=== PATIENT | female | born 1950 | race Caucasian/White ===

== ENCOUNTER → 2017-04-30 | Outpatient (CLI) | payer MEDICARE, BC ==
--- NOTE | 2017-04-30 12:51 | MM ---
Reason for exam: screening (asymptomatic). Last mammogram was performed 1 year ago. History: Patient is postmenopausal and is nulliparous. Benign excisional biopsy of the right breast. Physical Findings: A clinical breast exam by your physician is recommended on an annual basis and results should be correlated with mammographic findings. MG Screening Mammo w CAD Bilateral CC and MLO view(s) were taken. Prior study comparison: April 27, 2016, bilateral MG screening mammo w CAD. April 26, 2015, bilateral MG screening mammo w CAD. April 20, 2014, bilateral MG screening mammo w CAD. There are scattered fibroglandular densities. Finding: There are few typically benign round calcifications in both breasts. There is no discrete abnormality. ASSESSMENT: Benign, BI-RAD 2 RECOMMENDATION: Routine screening mammogram of both breasts in 1 year.
== END | disposition home or self-care (01) ==
LOC: RADMAMWWP 07:46
PROVIDERS: ATTEND Internal Medicine
DX: Z12.31 Encounter for screening mammogram for malignant neoplasm of breast (principal)

== ENCOUNTER → 2018-05-16 | Outpatient (CLI) | payer MEDICARE, BC ==
--- NOTE | 2018-05-22 09:18 | MM ---
Reason for exam: screening (asymptomatic). Last mammogram was performed 1 year and 1 month ago. History: Patient is postmenopausal and is nulliparous. Benign excisional biopsy of the right breast. Physical Findings: A clinical breast exam by your physician is recommended on an annual basis and results should be correlated with mammographic findings. MG Screening Mammo w CAD Bilateral CC, MLO, and XCCL view(s) were taken. Prior study comparison: April 30, 2017, bilateral MG screening mammo w CAD. April 27, 2016, bilateral MG screening mammo w CAD. There are scattered fibroglandular densities. Benign appearing bilateral calcifications. No suspicious abnormality. No significant changes when compared with prior studies. ASSESSMENT: Benign, BI-RAD 2 RECOMMENDATION: Routine screening mammogram of both breasts in 1 year.
== END | disposition home or self-care (01) ==
LOC: RADMAMWWP 07:46
PROVIDERS: ATTEND Internal Medicine
DX: Z12.31 Encounter for screening mammogram for malignant neoplasm of breast (principal)
CPT/HCPCS: 77067

== ENCOUNTER 2018-12-15 13:36 | Emergency (ER) | payer MEDICARE, BC ==
--- NOTE | 2018-12-15 15:23 | ED ---
General Adult HPI - General Chief complaint: Skin/Abscess/Foreign Body Stated complaint: Rash Time Seen by Provider: 12/15/18 14:15 Source: patient, RN notes reviewed, old records reviewed Mode of arrival: ambulatory Limitations: no limitations - History of Present Illness Initial comments: 68-year-old female patient with past medical history of hypertension and sensitivity to irritants on skin since ED with approximately 36 hours of rash. Patient reports that she recently switched or laundry detergent, upon when her close for the first time she developed a erythematous, rash on the areas where the clothing touch her skin. Patient states that this was mildly pruritic. Patient was seen at [facility] and administered steroids and Benadryl. Patient states that the rash is greatly improved. Patient does report that [facility] recommended she come in for further evaluation. Patient denies any angioedema, facial swelling, shortness of breath, wheezing, feeling of throat closing, nausea vomiting diarrhea, abdominal pain. Patient denies other complaints. Systemic: Pt denies fatigue, myalgia, fever/chills. Pt denies weakness, night sweats, weight loss. Neuro: Pt denies headache, visual disturbances, syncope or pre-syncope. HEENT: Pt denies ocular discharge or irritation, otalgia, rhinorrhea, pharyngitis or notable lymphadenopathy. Cardiopulmonary: Pt denies chest pain, SOB, heart palpitations, dyspnea on exertion. Abdominal/GI: Pt denies abdominal pain, n/v/d. : Pt denies dysuria, burning w/ urination, frequency/urgency. Denies new onset urinary or bowel incontinence. MSK: Pt denies myalgia, loss of strength or function in extremities. Neuro: Pt denies new onset weakness, paresthesias. - Related Data Previous Rx's Medication Instructions Recorded EPINEPHrine [Epipen 2-Cornel] 0.3 mg IM ONCE PRN #1 pack 12/15/18 diphenhydrAMINE [Benadryl] 1 - 2 tab PO Q6HR PRN #30 capsule 12/15/18 Allergies Allergy/AdvReac Type Severity Reaction Status Date / Time Penicillins Allergy Anaphylaxis Verified 12/15/18 15:24 Sulfa (Sulfonamide Allergy Anaphylaxis Verified 12/15/18 15:24 Antibiotics) Review of Systems ROS Statement: Those systems with pertinent positive or pertinent negative responses have been documented in the HPI. ROS Other: All systems not noted in ROS Statement are negative. Past Medical History Past Medical History: No Reported History History of Any Multi-Drug Resistant Organisms: None Reported Past Surgical History: Hysterectomy Additional Past Surgical History / Comment(s): Kidney removal left, Past Psychological History: No Psychological Hx Reported Smoking Status: Never smoker Past Alcohol Use History: None Reported Past Drug Use History: None Reported General Exam - General Exam Comments Initial Comments: Constitutional: NAD, AOX3, Pt has pleasant affect. HEENT: NC/AT, trachea midline, neck supple, no lymphadenopathy. Posterior pharynx non erythematous, without exudates. External ears appear normal, without discharge. Mucous membranes moist. Eyes PERRLA, EOM intact. There is no scleral icterus. No pallor noted. No angioedema. Cardiopulmonary: RRR, no murmurs, rubs or gallops, no JVD noted. Lungs CTAB in anterior and posterior castañeda. No peripheral edema. Abdominal exam: Abdomen soft and non-distended. Abdomen non-tender to palpation in all 4 quadrants. Bowel sounds active in LLQ. No hepatosplenomegaly. No ecchymosis Neuro: CN II-XII grossly intact. No nuchal rigidity. MSK: No posterior calf tenderness bilaterally, homans sign negative bilaterally. Posterior tibialis and radial pulse +2 bilaterally. Sensation intact in upper and lower extremities. Full active ROM in upper and lower extremities, 5/5 stregnth. Derm: Mildly erythematous rash noted on upper extremities bilaterally, mild amount located on back. Rashes mildly erythematous, not raised, nonpruritic, located in patches. Patient reports that is greatly improved. Limitations: no limitations Course Vital Signs 12/15/18 14:14 Temperature 97.6 F Pulse Rate 79 Respiratory 18 Rate Blood Pressure 151/78 O2 Sat by Pulse 99 Oximetry Medical Decision Making - Medical Decision Making 68-year-old female patient with past medical history of hypertension and sensitivity to irritants on skin since ED with approximately 36 hours of rash. Patient reports that she recently switched or laundry detergent, upon when her close for the first time she developed a erythematous, rash on the areas where the clothing touch her skin. Patient states that this was mildly pruritic. Patient was seen at [facility] and administered steroids and Benadryl. Patient states that the rash is greatly improved. [facility] report [facility] she come [facility] for further [facility]. Patient denies any angioedema, facial swelling, shortness of breath, wheezing, feeling of throat closing, nausea vomiting diarrhea, abdominal pain. Patient denies other complaints. Pt VSS, afebrile. Physical exam displayed: Mildly erythematous rash noted on upper extremities bilaterally, mild amount located on back. Rashes mildly erythematous, not raised, nonpruritic, located in patches. Patient reports that is greatly improved. Patient diagnosed with contact dermatitis. Patient to continue to use Benadryl as needed for rash. Patient educated and after and flexes, verbalized understanding. Patient to be prescribed Benadryl and EpiPen to use in case of emergency anaphylaxis. Pt verbalized understanding. Pt to f/u with PCP in 1-2 days. Pt to return to ED if new s/sx develop or if condition worsens in anyway. Case dsicussed with Dr. Ramirez. Disposition Clinical Impression: Contact dermatitis Disposition: HOME SELF-CARE Condition: Stable Instructions (If sedation given, give patient instructions): Contact Dermatitis (ED) Additional Instructions: Patient to adhere to previously discussed treatment plan and will take medication(s) as directed. Patient to follow up with PCP in 1-2 days. Patient to return to ED if symptoms do not improve. Use EpiPen only in case of emergency for anaphylaxis. Use Benadryl as needed for inflammation and rash. Prescriptions: diphenhydrAMINE [Benadryl] 1 - 2 tab PO Q6HR PRN #30 capsule PRN Reason: Allergic Reaction EPINEPHrine [Epipen 2-Cornel] 0.3 mg IM ONCE PRN #1 pack PRN Reason: Anaphylaxis Is patient prescribed a controlled substance at d/c from ED?: No Referrals: Fahad Salgado MD [Primary Care Provider] - 1-2 days Time of Disposition: 15:29
[2018-12-15 15:41] VITALS: BP 147/74; PULSE 82; RESP 19; TEMP 97.9
== END 2018-12-15 15:33 | disposition home or self-care (01) ==
LOC: EC 13:36
DX: L25.9 Unspecified contact dermatitis, unspecified cause (principal); Z88.0 Allergy status to penicillin; Z88.2 Allergy status to sulfonamides
CPT/HCPCS: 99283

== ENCOUNTER → 2018-12-26 | Outpatient (CLI) | payer MEDICARE, BC ==
[2018-12-26 13:55] LABS: Basophils # (A) 0.1 k/uL (0-0.2); Basophils % (A) 1 %; Eosinophils # (A) 0.1 k/uL (0-0.7); Eosinophils % (A) 1 %; HCT 45.5 % (34.0-46.0); HGB 14.5 gm/dL (11.4-16.0); Lymphocytes % (A) 17 %; MCH 29.5 pg (25.0-35.0); MCHC 31.9 g/dL (31.0-37.0); MCV 92.4 fL (80.0-100.0); Mean Platelet Volume 6.7; Monocytes # (A) 0.4 k/uL (0-1.0); Monocytes % (A) 3 %; Neutrophils # (A) 9.1 k/uL (1.3-7.7); Neutrophils % (A) 77 %; Platelet Count 364 k/uL (150-450); RBC 4.93 m/uL (3.80-5.40); RDW 13.3 % (11.5-15.5); WBC 11.7 k/uL (3.8-10.6)
[2018-12-26 13:57] LABS: Appearance,Urine Clear (Clear); Bilirubin,Urine Negative (Negative); Blood,Urine Negative (Negative); Color,Urine Light Yellow; Glucose,Urine (UA) Negative (Negative); Ketones,Urine Negative (Negative); Leukocyte Esterase,Urine Negative (Negative); Nitrite,Urine Negative (Negative); PH, Urine 5.5 (5.0-8.0); Protein,Urine Trace (Negative); Specific Gravity,Urine 1.011 (1.001-1.035); Urobilinogen,Urine <2.0 mg/dL (<2.0)
[2018-12-26 16:50] LABS: Erythrocyte Sedimentation Rate 16 mm/hr (0-20)
[2018-12-26 20:03] LABS: Albumin 4.4 g/dL (3.80-4.90); Albumin/Globulin Ratio 1.83 (1.60-3.17); Anion Gap 6.6 mmol/L (4.00-12.00); Calcium 9.8 mg/dL (8.7-10.3); Carbon Dioxide 26.4 mmol/L (21.6-31.8); Globulin 2.4 g/dL (1.6-3.3); Potassium 4.2 mmol/L (3.5-5.5); Total Bilirubin 0.4 mg/dL (0.3-1.2); Total Protein 6.8 g/dL (6.2-8.2)
[2018-12-26 20:18] LABS: Thyroid Peroxidase Antibodies <28.0 U/mL (0.0-60.0)
[2018-12-27 10:06] LABS: Pistachio IgE Class CLASS 0
== END | disposition home or self-care (01) ==
LOC: LABWHC1 13:27
PROVIDERS: ATTEND Allergy & Immunology
DX: L50.9 Urticaria, unspecified (principal)
CPT/HCPCS: 36415; 80053; 81003; 85025; 85652; 86003; 86160; 86376; 86800; 88184; 88185

== ENCOUNTER → 2019-05-22 | Outpatient (CLI) | payer MEDICARE, BC ==
--- NOTE | 2019-05-26 09:32 | MM ---
Reason for exam: screening (asymptomatic). Last mammogram was performed 1 year ago. History: Patient is postmenopausal and is nulliparous. Benign excisional biopsy of the right breast. Physical Findings: A clinical breast exam by your physician is recommended on an annual basis and results should be correlated with mammographic findings. MG Screening Mammo w CAD Bilateral CC and MLO view(s) were taken. Prior study comparison: May 16, 2018, bilateral MG screening mammo w CAD. April 30, 2017, bilateral MG screening mammo w CAD. There are scattered fibroglandular densities. No significant changes when compared with prior studies. ASSESSMENT: Benign, BI-RAD 2 RECOMMENDATION: Routine screening mammogram of both breasts in 1 year.
== END | disposition home or self-care (01) ==
LOC: RADMAMWWP 07:25
PROVIDERS: ATTEND Internal Medicine
DX: Z12.31 Encounter for screening mammogram for malignant neoplasm of breast (principal)
CPT/HCPCS: 77067

== ENCOUNTER → 2021-04-26 | Outpatient (CLI) | payer MEDICARE ==
--- NOTE | 2021-04-27 14:28 | BD ---
EXAMINATION TYPE: Axial Bone Density DATE OF EXAM: 04/26/2021 COMPARISON: 09.14.2014 CLINICAL HISTORY: 70 YR OLD FEMALE.....ICD-10 CODE: N95.1 POST MENOPAUSAL Height: 63 Weight: 175 FRAX RISK QUESTIONS: History of Fracture in Adulthood: YES RISK FACTORS HISTORY OF: RT FOOT FX >50 YRS OLD Postmenopausal woman: YES, AT AGE 51 YRS OLD Hyperparathyroidism: NO Adrenal Insufficiency: NO MEDICATIONS: Additional Medications: BP MEDS, XANAX PRN, STATIN FOR CHOLESTEROL, VIT D, Additional History: HYPERTENSION, ONE KIDNEY ONLY, CHOLESTEROL, EXAM MEASUREMENTS: Bone mineral densitometry was performed using the [employer] System. Bone mineral density as measured about the Lumbar spine is: ----- L1-L4(G/cm2): 1.292 T Score Values are as follows: ----- L1: 0.2 ----- L2: 0.7 ----- L3: 2.0 ----- L4: 0.6 ----- L1-L4: 0.9 Bone mineral density has: Increased 4.6% since study of: 09.14.2014 Bone mineral density about the R hip (g/cm2): 0.978 Bone mineral density about the L hip (g/cm2): 0.935 T Score values are as follows: -----R Neck: -0.4 -----L Neck: -0.5 -----R Total: -0.2 -----L Total: -0.6 Bone mineral density has: Decreased -4.2% since study of: 09.14.2014 FRAX: THERE IS A 12.1% CHANCE FOR A MAJOR OSTEOPOROTIC FX AND A 0.8% FOR HIP......PROBABILITY FOR FX IN 10 YRS TIME IMPRESSION: Findings are within normal limits. Bone mineral density has decreased 4.2 % at the hips in comparison to 09/14/2014 study. There is a 12.1% chance of major osteoporotic fracture and 0.8% probability of hip fracture in the next 10 years.
--- NOTE | 2021-04-28 11:36 | MM ---
Reason for exam: screening (asymptomatic). Last mammogram was performed 1 year and 11 months ago. History: Patient is postmenopausal and is nulliparous. Benign excisional biopsy of the right breast. Physical Findings: A clinical breast exam by your physician is recommended on an annual basis and results should be correlated with mammographic findings. MG 3D Screening Mammo W/Cad Bilateral CC and MLO view(s) were taken. Prior study comparison: May 22, 2019, bilateral MG screening mammo w CAD. May 16, 2018, bilateral MG screening mammo w CAD. There are scattered fibroglandular densities. There is no discrete abnormality. No significant changes when compared with prior studies. ASSESSMENT: Negative, BI-RAD 1 RECOMMENDATION: Routine screening mammogram of both breasts in 1 year.
== END | disposition home or self-care (01) ==
LOC: RADMAMWWP 07:08
PROVIDERS: ATTEND Internal Medicine
DX: Z12.31 Encounter for screening mammogram for malignant neoplasm of breast (principal); Z78.0 Asymptomatic menopausal state
CPT/HCPCS: 77063; 77067; 77080

== ENCOUNTER 2021-06-15 08:30 | Day surgery (SDC) | payer MEDICARE ==
[2021-06-14 11:19] VITALS: BMI 29.8
[~2021-06-15 08:30] MED LIST: LACTATED RINGERS 1,000 ML IV SCH
[2021-06-15 09:10] VITALS: TEMP 99
[2021-06-15] MEDS ORDERED: LIDOCAINE 1% INJ 10MG/ML (20 ML MDV) ONE (09:58)
[2021-06-15] MEDS ORDERED: PROPOFOL 10 MG/ML 20 ML VIAL IV ONE (09:58)
--- NOTE | 2021-06-15 10:12 | P.PCN ---
Date of Procedure: 06/15/21 Procedure(s) Performed: BRIEF HISTORY: Patient is a 70-year-old pleasant white female scheduled for an elective colonoscopy as a part of evaluation of prior history of colon polyps Her last coloscopy was 5 years ago PROCEDURE PERFORMED: Colonoscopy. PREOPERATIVE DIAGNOSIS: History of colon polyps. IV sedation per Anesthesia. PROCEDURE: After informed consent was obtained, the patient, was brought into the endoscopy unit. IV sedation was administered by Anesthesia under continuous monitoring. Digital rectal examination was normal. Initially the Olympus CF-160 flexible video colonoscope was then inserted in the rectum, gradually advanced into the cecum without any difficulty. Careful examination was performed as the scope was gradually being withdrawn. Ileocecal valve and the appendiceal orifice were visualized and appeared normal. Prep was excellent. Mucosa of the cecum, ascending colon, transverse colon, descending colon, sigmoid colon, and rectum appeared normal. Retroflexion was performed in the rectum and no lesions were seen. The patient tolerated the procedure well. IMPRESSION: Normal-appearing colon from rectum to cecum with no evidence of colorectal neoplasia. RECOMMENDATIONS: Findings of this examination were discussed with the patient is well as her family. She was advised to have a repeat colonoscopy in 10 years from now because of the prior history of colon polyps
[2021-06-15 10:19] VITALS: RESP 16
[2021-06-15 10:39] VITALS: BP 117/74; PULSE 67
== END 2021-06-15 11:18 | disposition home or self-care (01) ==
LOC: ORWHC2ENDO 08:30
PROVIDERS: ATTEND Internal Medicine Gastroenterology
DX: Z12.11 Encounter for screening for malignant neoplasm of colon (principal); Z86.010 Personal history of colon polyps; Z88.0 Allergy status to penicillin; I10 Essential (primary) hypertension; E78.5 Hyperlipidemia, unspecified; K21.9 Gastro-esophageal reflux disease without esophagitis; Z88.2 Allergy status to sulfonamides; Z79.899 Other long term (current) drug therapy
CPT/HCPCS: J2001; J2704; G0105

== ENCOUNTER → 2022-05-03 | Outpatient (CLI) | payer MEDICARE ==
--- NOTE | 2022-05-04 07:48 | MM ---
Reason for Exam: Screening (asymptomatic). Last screening mammogram was performed 12 month(s) ago. Patient History: Menarche at age 14. Patient has no children. Left ovary removed at age 52. Right ovary removed at age 52. Hysterectomy at age 52. Postmenopausal. Benign Excisional Biopsy on the right side. Risk Values: Nicole 5 year model risk: 2.3%. NCI Lifetime model risk: 6.6%. Prior Study Comparison: 05/16/2018 Bilateral Screening Mammogram, [facility]. 05/22/2019 Bilateral Screening Mammogram, [facility]. 04/26/2021 Bilateral Screening Mammogram, [facility]. Tissue Density: The breast tissue is heterogeneously dense. This may lower the sensitivity of mammography. Findings: Analyzed By CAD. There is no suspicious group of microcalcifications or new suspicious mass in either breast. Overall Assessment: Negative, BI-RAD 1 Management: Screening Mammogram of both breasts in 1 year. A clinical breast exam by your physician is recommended on an annual basis and results should be correlated with mammographic findings. Electronically signed and approved by: Julian Thurston M.D. Radiologis
== END | disposition home or self-care (01) ==
LOC: RADMAMWWP 07:12
PROVIDERS: ATTEND Internal Medicine
DX: Z12.31 Encounter for screening mammogram for malignant neoplasm of breast (principal); Z78.0 Asymptomatic menopausal state
CPT/HCPCS: 77063; 77067

== ENCOUNTER 2023-04-14 16:55 | Observation (INO) | payer MEDICARE ==
[2023-04-14 17:55] LABS: Basophils # (A) 0.1 k/uL (0-0.2); Basophils % (A) 1 %; Eosinophils # (A) 0.3 k/uL (0-0.7); Eosinophils % (A) 3 %; HCT 42.2 % (34.0-46.0); HGB 13.9 gm/dL (11.4-16.0); Lymphocytes # (A) 2.8 k/uL (1.0-4.8); Lymphocytes % (A) 34 %; MCH 30.9 pg (25.0-35.0); MCV 93.6 fL (80.0-100.0); Mean Platelet Volume 7.8; Monocytes # (A) 0.4 k/uL (0-1.0); Monocytes % (A) 5 %; Neutrophils # (A) 4.7 k/uL (1.3-7.7); Neutrophils % (A) 56 %; Platelet Count 306 k/uL (150-450); RBC 4.51 m/uL (3.80-5.40); RDW 12.8 % (11.5-15.5); WBC 8.4 k/uL (3.8-10.6)
--- NOTE | 2023-04-14 17:57 | ED ---
Chest Pain HPI - General Chief Complaint: Chest Pain Stated Complaint: Chest Pressure Time Seen by Provider: 04/14/23 17:38 Source: patient Mode of arrival: ambulatory Limitations: no limitations - History of Present Illness Initial Comments: 72-year-old female with past medical history significant for hypertension presents to the ED with a chief complaint of chest pain. Patient states that she was on her way to dinner at rest when she started to experience chest pain located in the middle of her chest. Patient states pain radiated to the area between her shoulder blades. She does note a history of indigestion and notes pain is similar in nature however states that in past episodes of indigestion pain radiated up her throat instead of the back and notes that this worried her and prompted her to the ED further evaluation. Patient states pain lasted for approximately 20 minutes and at this time is completely resolved. During the episode of pain and denies any nausea or vomiting. Denies any shortness of breath. Currently has no complaints. - Related Data Home Medications Medication Instructions Recorded Confirmed Cranberry(Dose Unknown) 1 tab PO DAILY 06/14/21 06/15/21 Elderberry(Dose Unknown) 1 tab PO BID 06/14/21 06/15/21 Fish Oil Cap(Dose Unknown) 1 cap PO TID 06/14/21 06/15/21 Rosuvastatin Calcium [Crestor] 5 mg PO DAILY 06/14/21 06/15/21 Vit C/E/Zn/Coppr/Lutein/Zeaxan 1 each PO BID 06/14/21 06/15/21 [Preservision Areds 2 Softgel] Vitamin D(Dose Unknown) 1 tab PO DAILY 06/14/21 06/15/21 lisinopriL [Prinivil] 10 mg PO QAM 06/14/21 06/15/21 Previous Rx's Medication Instructions Recorded EPINEPHrine [Epipen 2-Cornel] 0.3 mg IM ONCE PRN #1 pack 12/15/18 Allergies Allergy/AdvReac Type Severity Reaction Status Date / Time Penicillins Allergy Anaphylaxis Verified 06/15/21 09:00 Sulfa (Sulfonamide Allergy Anaphylaxis Verified 06/15/21 09:00 Antibiotics) Review of Systems ROS Statement: Those systems with pertinent positive or pertinent negative responses have been documented in the HPI. ROS Other: All systems not noted in ROS Statement are negative. Past Medical History Past Medical History: GERD/Reflux, Hyperlipidemia, Hypertension History of Any Multi-Drug Resistant Organisms: None Reported Past Surgical History: Breast Surgery, Hysterectomy Additional Past Surgical History / Comment(s): left Kidney removal age 11 (never formed), rt breast lumpectomy, rt shoulder arthroscopy, colonocopy Past Anesthesia/Blood Transfusion Reactions: No Reported Reaction Past Psychological History: No Psychological Hx Reported Smoking Status: Never smoker Past Alcohol Use History: None Reported Past Drug Use History: None Reported - Past Family History Father Family Medical History: Cancer Additional Family Medical History / Comment(s): lung cancer Sister(s) Family Medical History: Deep Vein Thrombosis (DVT), Pulmonary Embolus General Exam Limitations: no limitations Head exam: Present: atraumatic, normocephalic Eye exam: Present: normal appearance ENT exam: Present: normal exam, mucous membranes moist Respiratory exam: Present: normal lung sounds bilaterally Cardiovascular Exam: Present: regular rate, normal rhythm GI/Abdominal exam: Present: soft, tenderness (Nontender to palpation. No rebound guarding or rigidity.) Neurological exam: Present: alert, oriented X3 Psychiatric exam: Present: normal affect, normal mood Skin exam: Present: warm, dry Course Vital Signs 04/14/23 17:04 Temperature 97.6 F Pulse Rate 68 Respiratory 20 Rate Blood Pressure 151/78 O2 Sat by Pulse 100 Oximetry Chest Pain MDM - MDM Was pt. sent in by a medical professional or institution (JENNIFER Moncada, [employer] APPRENTICE, urgent care, hospital, or [facility]...) When possible be specific @ -[No] Did you speak to anyone other than the patient for history (EMS, parent, family, police, friend...)? What history was obtained from this source @ -[No] Did you review nursing and triage notes (agree or disagree)? Why? @ -[I reviewed and agree with nursing and triage notes] Were old charts reviewed (outside hosp., previous admission, EMS record, old EKG, old radiological studies, urgent care reports/EKG's, [facility] records)? Report findings @ -Charts reviewed showing history of hypertension. Differential Diagnosis (chest pain, altered mental status, abdominal pain women, abdominal pain men, vaginal bleeding, weakness, fever, dyspnea, syncope, headache, dizziness, GI bleed, back pain, seizure, CVA, palpatations, mental health, musculoskeletal)? @ -Differential Chest Pain: Stable Angina, Unstable Angina, STEMI, NSTEMI Aortic Dissection, Pneumothorax, Musculoskeletal, Esophageal Spasm GERD, Cholecystitis, Pancreatitis, Zoster, this is not meant to be an all-inclusive list. EKG interpreted by me (3pts min.). @ -EKG shows a sinus rhythm at [address] or T-wave changes. OR 173, QRS 88, QT/QTC 376/401. X-rays interpreted by me (1pt min.). @ -Chest x-ray shows no acute process. CT interpreted by me (1pt min.). @ -[None done] U/S interpreted by me (1pt. min.). @ -[None done] What testing was considered but not performed or refused? (CT, X-rays, U/S, labs)? Why? @ -[None] What meds were considered but not given or refused? Why? @ -[None] Did you discuss the management of the patient with other professionals (professionals i.e. , PA, [employer]DER APPRENTICE, lab, RT, psych nurse, social director, corn miller, teacher, correctional program officer, casey saw operator)? Give summary @ -[No] Was smoking cessation discussed for >3mins.? @ -[No] Was critical care preformed (if so, how long)? @ -[No] Were there social determinants of health that impacted care today? How? (Homelessness, low income, unemployed, alcoholism, drug addiction, transportation, low edu. Level, literacy, decrease access to med. care, snf, rehab)? @ -[No] Was there de-escalation of care discussed even if they declined (Discuss DNR or withdrawal of care, Hospice)? DNR status @ -[No] What co-morbidities impacted this encounter? (DM, HTN, Smoking, COPD, CAD, Cancer, CVA, ARF, Chemo, Hep., AIDS, mental health diagnosis, sleep apnea, morbid obesity)? @ -[None] Was patient admitted / discharged? Hospital course, mention meds given and route, prescriptions, significant lab abnormalities, going to OR and other pertinent info. @ -Discharged. Her laboratory studies unremarkable including troponin. Chest x-ray shows no acute process. Patient has a heart score of 4 due to age, history, and history of hypertension. At this time symptoms likely secondary to GERD. However, will be admitted to observation for chest pain rule out with consultation to cardiology. Spoke to patient patient agreeable with plan. Undiagnosed new problem with uncertain prognosis? @ -[No] Drug Therapy requiring intensive monitoring for toxicity (Heparin, Nitro, Insulin, Cardizem)? @ -[No] Were any procedures done? @ -[No] Diagnosis/symptom? @ -Chest pain Acute, or Chronic, or Acute on Chronic? @ -Acute Uncomplicated (without systemic symptoms) or Complicated (systemic symptoms)? @ -Uncomplicated Side effects of treatment? @ -[No] Exacerbation, Progression, or Severe Exacerbation? @ -[No] Poses a threat to life or bodily function? How? (Chest pain, USA, PA, pneumonia, PE, COPD, DKA, ARF, appy, cholecystitis, CVA, Diverticulitis, Homicidal, Suicid al, threat to staff... and all critical care pts) @ -[No] Disposition Clinical Impression: Chest pain Disposition: ADMITTED IP TO THIS HOSP Condition: Good Referrals: Fahad Salgado MD [Primary Care Provider] - 1-2 days Time of Disposition: 18:30
[2023-04-14 18:05] LABS: Partial Thromboplastin Time 25.1 sec (22.0-30.0); Prothrombin Time 10.2 sec (9.0-12.0)
[2023-04-14 18:10] LABS: ALT 29 U/L (4-34); AST 30 U/L (14-36); African American GFR (CKD) 73 (>60 ml/min/1.73 sqM); Albumin 3.9 g/dL (3.5-5.0); Alkaline Phosphatase 119 U/L (38-126); Anion Gap 8 mmol/L; Blood Urea Nitrogen 25 mg/dL (7-17); Calcium 9.3 mg/dL (8.4-10.2); Carbon Dioxide 22 mmol/L (22-30); Chloride 108 mmol/L (98-107); Glucose 103 mg/dL (74-99); Magnesium 2.1 mg/dL (1.6-2.3); Non-African American GFR(CKD) 63 (>60 ml/min/1.73 sqM); Potassium 4.3 mmol/L (3.5-5.1); Sodium 138 mmol/L (137-145); Total Bilirubin 0.3 mg/dL (0.2-1.3); Total Protein 6.7 g/dL (6.3-8.2)
--- NOTE | 2023-04-14 18:10 | XR ---
EXAMINATION TYPE: XR chest 2V DATE OF EXAM: 04/14/2023 COMPARISON: 09/11/2012 INDICATION: TECHNIQUE: Frontal and lateral views of the chest are obtained. FINDINGS: The heart size is normal. The pulmonary vasculature is normal. The lungs are clear. Mild Spondylosis lower thoracic spine. IMPRESSION: 1. No acute pulmonary process.
[2023-04-14 18:13] LABS: Appearance,Urine Clear (Clear); Bilirubin,Urine Negative (Negative); Blood,Urine Negative (Negative); Color,Urine Light Yellow; Glucose,Urine (UA) Negative (Negative); Ketones,Urine Negative (Negative); Leukocyte Esterase,Urine Moderate (Negative); Mucus,Urine Rare /hpf; Nitrite,Urine Negative (Negative); PH, Urine 5.5 (5.0-8.0); Protein,Urine Trace (Negative); Specific Gravity,Urine 1.014 (1.001-1.035); Squamous Epithelial Cell,Urine <1 /hpf (0-4); Urobilinogen,Urine <2.0 mg/dL (<2.0); WBC,Urine 18 /hpf (0-5)
[2023-04-14] MEDS ORDERED: NALOXONE 0.4 MG/ML 1 ML VIAL IV PRN (20:07)
[2023-04-15 08:29] VITALS: BP 136/80; PULSE 69; RESP 16; TEMP 97.9
[2023-04-15] MEDS ORDERED: lisinopriL 10 MG TAB PO SCH (09:30)
--- NOTE | 2023-04-15 10:15 | P.HPIM ---
History of Present Illness H&P Date: 04/15/23 Chief Complaint: Chest pain This is a 72-year-old female patient who presented to the ER with concerns of chest pain. Patient reports she was on her way to dinner when pain started suddenly and radiated to her back quickly resolved upon arrival to ER. Patient has had previous episodes of GERD but denies association with radiation. Patient denies any associated shortness of breath or diaphoresis. Patient has a past medical history of GERD, hyperlipidemia, hypertension and nephrectomy. Patient completed showing no acute process. EKG performed showing normal sinus rhythm. Troponins negative 3. The patient with cardiology services no further workup inpatient at this time. UA is positive. Patient denies any acute symptoms urine culture will be ordered at this time patient denies chest pain or shortness of breath. Patient denies nausea vomiting or diarrhea. Patient denies any urinary burning or frequency Review of Systems Please refer to HPI otherwise unremarkable Past Medical History Past Medical History: GERD/Reflux, Hyperlipidemia, Hypertension History of Any Multi-Drug Resistant Organisms: None Reported Past Surgical History: Breast Surgery, Hysterectomy Additional Past Surgical History / Comment(s): left Kidney removal age 11 (never formed), rt breast lumpectomy, rt shoulder arthroscopy, colonoscopy, stem cell in right shoulder Past Anesthesia/Blood Transfusion Reactions: No Reported Reaction Past Psychological History: No Psychological Hx Reported Smoking Status: Never smoker Past Alcohol Use History: None Reported Past Drug Use History: None Reported - Past Family History Father Family Medical History: Cancer Additional Family Medical History / Comment(s): lung cancer Sister(s) Family Medical History: Deep Vein Thrombosis (DVT), Pulmonary Embolus Medications and Allergies Home Medications Medication Instructions Recorded Confirmed Type EPINEPHrine [Epipen 2-Cornel] 0.3 mg IM ONCE PRN #1 pack 12/15/18 04/14/23 Rx Cranberry(Dose Unknown) 1 tab PO DAILY 06/14/21 04/14/23 History Elderberry(Dose Unknown) 1 tab PO BID 06/14/21 04/14/23 History Fish Oil Cap(Dose Unknown) 1 cap PO TID 06/14/21 04/14/23 History Vit C/E/Zn/Coppr/Lutein/Zeaxan 1 cap PO BID 06/14/21 04/14/23 History [Preservision Areds 2 Softgel] Vitamin D(Dose Unknown) 1 tab PO DAILY 06/14/21 04/14/23 History lisinopriL [Prinivil] 10 mg PO DAILY 06/14/21 04/14/23 History Rosuvastatin [Crestor] 5 mg PO DAILY 04/14/23 04/14/23 History Allergies Allergy/AdvReac Type Severity Reaction Status Date / Time Penicillins Allergy Anaphylaxis Verified 04/14/23 19:12 Sulfa (Sulfonamide Allergy Anaphylaxis Verified 04/14/23 19:12 Antibiotics) Physical Exam Vitals: Vital Signs Temp Pulse Pulse Pulse Resp BP BP 04/15/23 07:15 97.9 F 69 16 136/80 04/15/23 02:00 98.2 F 77 15 139/68 04/14/23 22:01 98.2 F 74 15 148/69 04/14/23 21:30 15 04/14/23 20:02 72 17 126/80 04/14/23 19:05 75 04/14/23 18:54 97.9 F 82 20 150/76 04/14/23 17:04 97.6 F 68 20 151/78 Pulse Ox 04/15/23 07:15 96 04/15/23 02:00 97 04/14/23 22:01 96 04/14/23 21:30 04/14/23 20:02 96 04/14/23 19:05 04/14/23 18:54 04/14/23 17:04 100 Intake and Output 04/14/23 04/15/23 04/15/23 22:59 06:59 14:59 Intake Total 0 Balance 0 Intake: Oral 0 Other: Voiding Method Toilet # Voids 2 2 Weight 77.111 kg Head normocephalic Neck supple Lungs clear to auscultation bilaterally no wheezing or crackles Heart regular rate and rhythm S1-S2, no rub or gallop Abdomen is soft nontender nondistended positive bowel sounds no hepatosplenomegaly Extremities no edema Neuro alert and orientated to 3 Results CBC & Chem 7: 04/14/23 17:48 04/14/23 17:48 Labs: Abnormal Lab Results - Last 24 Hours (Table) 04/14/23 04/14/23 Range/Units 17:48 17:48 Chloride 108 H (98-107) mmol/L BUN 25 H (7-17) mg/dL Glucose 103 H (74-99) mg/dL Urine Protein Trace H (Negative) Ur Leukocyte Esterase Moderate H (Negative) Urine WBC 18 H (0-5) /hpf Urine Mucus Rare H (None) /hpf Thrombosis Risk Factor Assmnt - Choose All That Apply Each Factor Represents 1 point: Obesity (BMI >25) Each Risk Factor Represents 2 Points: Age 61-74 years Thrombosis Risk Factor Assessment Total Risk Factor Score: 3 Thrombosis Risk Factor Assessment Level: Moderate Risk Assessment and Plan Assessment: 1. Chest pain. Troponins negative 3 2. Urinary tract infection. Patient denies any symptoms urine culture ordered 3. History of nephrectomy at age 11 4. History of GERD 5. History of hyperlipidemia 6. History of hypertension Time with Patient: Greater than 30 (Greater than 60% of the total time spent in counseling and coordination of care)
--- NOTE | 2023-04-15 10:35 | P.DS ---
Providers Date of admission: 04/14/23 20:07 Expected date of discharge: 04/15/23 Attending physician: Fahad Salgado Consults: 04/14/23 20:07 Consult Physician Urgent Consulting Provider: [facility] Consult Reason/Comments: chest pain r/o ACS Do you want consulting provider notified?: Yes Primary care physician: Fahad Salgado [facility] Hospital Course: Discharge diagnosis 1. Chest pain. Troponins negative 3 2. Urinary tract infection. Patient denies any symptoms urine culture ordered 3. History of nephrectomy at age 11 4. History of GERD 5. History of hyperlipidemia 6. History of hypertension Hospital course This is a 72-year-old female patient who presented to the ER with concerns of chest pain. Patient reports she was on her way to dinner when pain started suddenly and radiated to her back quickly resolved upon arrival to ER. Patient has had previous episodes of GERD but denies association with radiation. Patient denies any associated shortness of breath or diaphoresis. Patient has a past medical history of GERD, hyperlipidemia, hypertension and nephrectomy. Patient completed showing no acute process. EKG performed showing normal sinus rhythm. Troponins negative 3. The patient with cardiology services no further workup inpatient at this time. UA is positive. Patient denies any acute symptoms urine culture will be ordered at this time patient denies chest pain or shortness of breath. Patient denies nausea vomiting or diarrhea. Patient denies any urinary burning or frequency On patient is alert and oriented 3. Patient has been cleared for discharge from cardiology standpoint discussed case with cardiology team patient will follow up outpatient for further management of blood pressure. Also DC patient on Pepcid. Urine culture ordered prior to discharge antibiotic will be sent from office for urinary tract infection. Patient Condition at Discharge: Stable Plan - Discharge Summary New Discharge Prescriptions: New Famotidine [Pepcid] 20 mg PO DAILY 30 Days #30 tablet Continue EPINEPHrine [Epipen 2-Cornel] 0.3 mg IM ONCE PRN #1 pack PRN Reason: Anaphylaxis Vit C/E/Zn/Coppr/Lutein/Zeaxan [Preservision Areds 2 Softgel] 1 cap PO BID lisinopriL [Prinivil] 10 mg PO DAILY Elderberry(Dose Unknown) 1 tab PO BID Rosuvastatin [Crestor] 5 mg PO DAILY Vitamin D(Dose Unknown) 1 tab PO DAILY Fish Oil Cap(Dose Unknown) 1 cap PO TID Cranberry(Dose Unknown) 1 tab PO DAILY Discharge Medication List EPINEPHrine [Epipen 2-Cornel] 0.3 mg IM ONCE PRN #1 pack 12/15/18 [Rx] Cranberry(Dose Unknown) 1 tab PO DAILY 06/14/21 [History] Elderberry(Dose Unknown) 1 tab PO BID 06/14/21 [History] Fish Oil Cap(Dose Unknown) 1 cap PO TID 06/14/21 [History] Vit C/E/Zn/Coppr/Lutein/Zeaxan [Preservision Areds 2 Softgel] 1 cap PO BID 06/14 [History] Vitamin D(Dose Unknown) 1 tab PO DAILY 06/14/21 [History] lisinopriL [Prinivil] 10 mg PO DAILY 06/14/21 [History] Rosuvastatin [Crestor] 5 mg PO DAILY 04/14/23 [History] Famotidine [Pepcid] 20 mg PO DAILY 30 Days #30 tablet 04/15/23 [Rx] Follow up Appointment(s)/Referral(s): Fahad Salgado MD [Primary Care Provider] - 1-2 days Frederic Bocanegra MD [STAFF PHYSICIAN] - 1 Week Activity/Diet/Wound Care/Special Instructions: Antibiotic for UTI will be called in from office Discharge Disposition: HOME SELF-CARE
--- NOTE | 2023-04-15 11:18 | P.CRDCN ---
History of Present Illness Consult date: 04/15/23 Consult reason: chest pain History of present illness: The patient is a 72-year-old female who presented to the emergency room with new onset of chest discomfort. She states this was epigastric pain, which she describes as a burning sensation that radiated through to her mid scapula. She states she was not exerting herself at the time and had not performed any strenuous activity earlier that day. She states she typically exercises 5 days per week without issue, but has been having reflux discomfort over the last several months. DIAGNOSTICS: EKG shows sinus mechanism without ST or T-wave abnormalities Chest x-ray showed no acute cardiopulmonary process Lab data: WBC 8.4, hemoglobin 13.9, hematocrit 42.2, platelet 306, sodium 138, potassium 4.3, BUN 25, creatinine 0.93, AST 30, ALT 29, troponins negative 3 REVIEW OF SYSTEMS: No fever or chills. No cough or expectoration. No diaphoresis. Patient denies headache, dizziness, blurred vision, double vision. Patient denies any stomach discomfort. No nausea, vomiting. No hematochezia. No hematemesis. Denies any black stools or blood in his stools. Denies dysuria or hematuria. No muscle weakness or numbness. No chest pain or chest pressure. No dyspnea. PHYSICAL EXAMINATION: This is a 72-year-old female in no apparent distress at the time of my examination. HEENT: Head is atraumatic, normocephalic. Pupils are equal, round. Sclerae anicteric. Conjunctivae are clear. Mucous membranes of the mouth are moist. Neck is supple. There is no jugular venous distention. No carotid bruit is heard. CHEST EXAMINATION: Lungs are clear to auscultation. No chest wall tenderness is noted on palpation or with deep breathing. HEART EXAMINATION: Heart regular rate and rhythm. S1, S2 heard. No murmurs, gallops or rub. ABDOMEN: Soft, nontender. Bowel sounds are heard. No organomegaly noted. EXTREMITIES: 2+ peripheral pulses with no evidence of peripheral edema and no calf tenderness noted. NEUROLOGIC EXAMINATION: Patient is awake, alert and oriented x3. FINAL ASSESSMENT AND PLAN: Chest discomfort, not indicative acute coronary syndrome Hypertension, recommend home blood pressure monitoring History of acid reflux PLAN: Check lipid profile TSH and hemoglobin A1c Patient may be discharged from the cardiac standpoint Follow-up in office in 2-3 weeks I am dictating on behalf of Dr Frederic Bocanegra's history/physical and assessment/plan. Past Medical History Past Medical History: GERD/Reflux, Hyperlipidemia, Hypertension History of Any Multi-Drug Resistant Organisms: None Reported Past Surgical History: Breast Surgery, Hysterectomy Additional Past Surgical History / Comment(s): left Kidney removal age 11 (never formed), rt breast lumpectomy, rt shoulder arthroscopy, colonoscopy, stem cell in right shoulder Past Anesthesia/Blood Transfusion Reactions: No Reported Reaction Past Psychological History: No Psychological Hx Reported Smoking Status: Never smoker Past Alcohol Use History: None Reported Past Drug Use History: None Reported - Past Family History Father Family Medical History: Cancer Additional Family Medical History / Comment(s): lung cancer Sister(s) Family Medical History: Deep Vein Thrombosis (DVT), Pulmonary Embolus Medications and Allergies Home Medications Medication Instructions Recorded Confirmed Type EPINEPHrine [Epipen 2-Cornel] 0.3 mg IM ONCE PRN #1 pack 12/15/18 04/14/23 Rx Cranberry(Dose Unknown) 1 tab PO DAILY 06/14/21 04/14/23 History Elderberry(Dose Unknown) 1 tab PO BID 06/14/21 04/14/23 History Fish Oil Cap(Dose Unknown) 1 cap PO TID 06/14/21 04/14/23 History Vit C/E/Zn/Coppr/Lutein/Zeaxan 1 cap PO BID 06/14/21 04/14/23 History [Preservision Areds 2 Softgel] Vitamin D(Dose Unknown) 1 tab PO DAILY 06/14/21 04/14/23 History lisinopriL [Prinivil] 10 mg PO DAILY 06/14/21 04/14/23 History Rosuvastatin [Crestor] 5 mg PO DAILY 04/14/23 04/14/23 History Famotidine [Pepcid] 20 mg PO DAILY 30 Days #30 tablet 04/15/23 Rx Allergies Allergy/AdvReac Type Severity Reaction Status Date / Time Penicillins Allergy Anaphylaxis Verified 04/14/23 19:12 Sulfa (Sulfonamide Allergy Anaphylaxis Verified 04/14/23 19:12 Antibiotics) Physical Exam Vitals: Vital Signs Temp Pulse Pulse Pulse Resp BP BP 04/15/23 07:15 97.9 F 69 16 136/80 04/15/23 02:00 98.2 F 77 15 139/68 04/14/23 22:01 98.2 F 74 15 148/69 04/14/23 21:30 15 04/14/23 20:02 72 17 126/80 04/14/23 19:05 75 04/14/23 18:54 97.9 F 82 20 150/76 04/14/23 17:04 97.6 F 68 20 151/78 Pulse Ox 04/15/23 07:15 96 04/15/23 02:00 97 04/14/23 22:01 96 04/14/23 21:30 04/14/23 20:02 96 04/14/23 19:05 04/14/23 18:54 04/14/23 17:04 100 Intake and Output 04/14/23 04/15/23 04/15/23 22:59 06:59 14:59 Intake Total 0 Balance 0 Intake: Oral 0 Other: Voiding Method Toilet # Voids 2 2 Weight 77.111 kg Results 04/14/23 17:48 04/14/23 17:48 Cardiac Enzymes 04/14/23 04/14/23 04/14/23 Range/Units 17:48 17:48 23:24 AST 30 (14-36) U/L Troponin I <0.012 <0.012 (0.000-0.034) ng/mL 04/15/23 Range/Units 02:53 AST (14-36) U/L Troponin I <0.012 (0.000-0.034) ng/mL Coagulation 04/14/23 Range/Units 17:48 PT 10.2 (9.0-12.0) sec APTT 25.1 (22.0-30.0) sec CBC 04/14/23 Range/Units 17:48 WBC 8.4 (3.8-10.6) k/uL RBC 4.51 (3.80-5.40) m/uL Hgb 13.9 (11.4-16.0) gm/dL Hct 42.2 (34.0-46.0) % Plt Count 306 (150-450) k/uL Comprehensive Metabolic Panel 04/14/23 Range/Units 17:48 Sodium 138 (137-145) mmol/L Potassium 4.3 (3.5-5.1) mmol/L Chloride 108 H (98-107) mmol/L Carbon Dioxide 22 (22-30) mmol/L BUN 25 H (7-17) mg/dL Creatinine 0.92 (0.52-1.04) mg/dL Glucose 103 H (74-99) mg/dL Calcium 9.3 (8.4-10.2) mg/dL AST 30 (14-36) U/L ALT 29 (4-34) U/L Alkaline Phosphatase 119 (38-126) U/L Total Protein 6.7 (6.3-8.2) g/dL Albumin 3.9 (3.5-5.0) g/dL Current Medications Generic Name Dose Route Start Last Admin Trade Name Freq PRN Reason Stop Dose Admin Atorvastatin Calcium 10 mg 04/16/23 09:00 Atorvastatin 10 Mg Tab PO DAILY DIONICIO Lisinopril 10 mg 04/15/23 09:30 04/15/23 10:20 Lisinopril 10 Mg Tab PO 10 mg DAILY DIONICIO Administration Naloxone HCl 0.2 mg 04/14/23 20:07 Naloxone 0.4 Mg/Ml 1 Ml Vial IV Q2M PRN Opioid Reversal Intake and Output 04/14/23 04/15/23 04/15/23 22:59 06:59 14:59 Intake Total 0 Balance 0 Intake: Oral 0 Other: Voiding Method Toilet # Voids 2 2 Weight 77.111 kg 04/14/23 17:48 04/14/23 17:48
[2023-04-16] MEDS ORDERED: ATORVASTATIN 10 MG TAB PO SCH (09:00)
== END 2023-04-15 10:55 | disposition home or self-care (01) ==
LOC: EC 16:55 → 6NMEDSUR 20:07
PROVIDERS: ADMIT Internal Medicine; ATTEND Internal Medicine
DX: R07.89 Other chest pain (principal); N39.0 Urinary tract infection, site not specified; K21.9 Gastro-esophageal reflux disease without esophagitis; I10 Essential (primary) hypertension; K30 Functional dyspepsia; E78.5 Hyperlipidemia, unspecified; E66.9 Obesity, unspecified; Z68.30 Body mass index [BMI] 30.0-30.9, adult; Z79.899 Other long term (current) drug therapy; Z88.0 Allergy status to penicillin; Z88.2 Allergy status to sulfonamides; Z90.710 Acquired absence of both cervix and uterus; Z90.5 Acquired absence of kidney; Z98.890 Other specified postprocedural states; Z80.1 Family history of malignant neoplasm of trachea, bronchus and lung; Z82.49 Family history of ischemic heart disease and other diseases of the circulatory system
CPT/HCPCS: 99285; 36415; 93005; 80053; 83735; 84484 ×2; 85025; 85610; 85730; 81001; 87086; 71046; G0378 ×2

== ENCOUNTER → 2023-05-10 | Outpatient (CLI) | payer MEDICARE ==
--- NOTE | 2023-05-10 08:09 | MM ---
Reason for Exam: Screening (asymptomatic). Last screening mammogram was performed 12 month(s) ago. Patient History: Menarche at age 14. Patient has no children. Left ovary removed at age 52. Right ovary removed at age 52. Hysterectomy at age 52. Postmenopausal. Benign Excisional Biopsy on the right side. Risk Values: Nicole 5 year model risk: 2.3%. NCI Lifetime model risk: 6.3%. Prior Study Comparison: 05/22/2019 Bilateral Screening Mammogram, [facility]. 04/26/2021 Bilateral Screening Mammogram, [facility]. 05/03/2022 Bilateral MG 3D screening mammo w/cad, [facility]. Tissue Density: The breast tissue is heterogeneously dense. This may lower the sensitivity of mammography. Findings: Analyzed By CAD. There is no suspicious group of microcalcifications or new suspicious mass in either breast. Benign calcifications within both breasts. Overall Assessment: Benign, BI-RAD 2 Management: Screening Mammogram of both breasts in 1 year. A clinical breast exam by your physician is recommended on an annual basis and results should be correlated with mammographic findings. Note on Nicole scores and lifetime risk: 1. A Nicole score greater than 3% is considered moderate risk. If this is the case, consider specialist referral to assess eligibility for a risk reducing agent. If overall lifetime risk for the development of breast cancer is 20% or higher, the patient may qualify for future screening with alternating mammogram and breast MRI. Electronically signed and approved by: Javier Calderon D.O.
== END | disposition home or self-care (01) ==
LOC: RADMAMWWP 06:56
PROVIDERS: ATTEND Internal Medicine
DX: Z12.31 Encounter for screening mammogram for malignant neoplasm of breast (principal); Z78.0 Asymptomatic menopausal state
CPT/HCPCS: 77063; 77067

== ENCOUNTER → 2024-05-12 | Outpatient (CLI) | payer MEDICARE ==
--- NOTE | 2024-05-13 08:43 | MM ---
Reason for Exam: Screening (asymptomatic). Last screening mammogram was performed 12 month(s) ago. Patient History: Menarche at age 14. Patient has no children. Left ovary removed at age 52. Right ovary removed at age 52. Hysterectomy at age 52. Postmenopausal. Benign Excisional Biopsy on the right side. Risk Values: Nicole 5 year model risk: 2.3%. NCI Lifetime model risk: 6.0%. Prior Study Comparison: 04/26/2021 Bilateral Screening Mammogram, [facility]. 05/03/2022 Bilateral MG 3D screening mammo w/cad, [facility]. 05/10/2023 Bilateral MG 3D screening mammo w/cad, [facility]. Tissue Density: There are scattered areas of fibroglandular density. Findings: Analyzed By CAD. There is no suspicious group of microcalcifications or new suspicious mass in either breast. Benign calcifications. Overall Assessment: Benign, BI-RAD 2 Management: Screening Mammogram of both breasts in 1 year. . Patient should continue monthly self-breast exams. A clinical breast exam by your physician is recommended on an annual basis. This exam should not preclude additional follow-up of suspicious palpable abnormalities. Note on Nicole scores and lifetime risk: 1. A Nicole score greater than 3% is considered moderate risk. If this is the case, consider specialist referral to assess eligibility for a risk reducing agent. 2. If overall lifetime risk for the development of breast cancer is 20% or higher, the patient may qualify for future screening with alternating mammogram and breast MRI. Electronically signed and approved by: Willie Mobley M.D. Radiologis
== END | disposition home or self-care (01) ==
LOC: RADMAMWWP 07:11
PROVIDERS: ATTEND Internal Medicine
DX: Z12.31 Encounter for screening mammogram for malignant neoplasm of breast (principal); R92.323 Mammographic fibroglandular density, bilateral breasts; Z78.0 Asymptomatic menopausal state
CPT/HCPCS: 77063; 77067